=== PATIENT | female | born 1955 | race Two or more races ===

== ENCOUNTER 2022-03-15 04:20 | Day surgery (SDC) | payer OTHER ==
[2022-03-12 11:07] VITALS: BMI 32.6
[2022-03-15 09:40] VITALS: TEMP 97.3
[2022-03-15 12:10] VITALS: BP 133/58; PULSE 66; RESP 14
== END 2022-03-15 12:45 | disposition home or self-care (01) ==
LOC: JASU-ENDO 04:20
PROVIDERS: ATTEND Internal Medicine Gastroenterology
PROC: 0DBK8ZX Excision of Ascending Colon, Via Natural or Artificial Opening Endoscopic, Diagnostic (ICD-10-PCS; 2022-03-15)
PROC: 0DBL8ZX Excision of Transverse Colon, Via Natural or Artificial Opening Endoscopic, Diagnostic (ICD-10-PCS; principal; 2022-03-15 08:45)
DX: Z12.11 Encounter for screening for malignant neoplasm of colon (principal); D12.2 Benign neoplasm of ascending colon; D12.3 Benign neoplasm of transverse colon; K55.20 Angiodysplasia of colon without hemorrhage; K64.8 Other hemorrhoids; I10 Essential (primary) hypertension; E11.9 Type 2 diabetes mellitus without complications
CPT/HCPCS: 82962; 88305-TC